=== PATIENT | female | born 1965 ===

== ENCOUNTER 2022-07-28 10:35 | Outpatient (CLI) | payer OTHER | END 2022-07-28 10:54 | disposition home or self-care (01) | LOC: MAMO-SONO 10:35 | DX: Z12.31 Encounter for screening mammogram for malignant neoplasm of breast (principal); N60.11 Diffuse cystic mastopathy of right breast; N60.12 Diffuse cystic mastopathy of left breast ==

== ENCOUNTER 2023-09-22 09:50 | Outpatient (CLI) | payer OTHER | END 2023-09-22 10:00 | disposition home or self-care (01) | LOC: MAMO-SONO 09:50 | PROVIDERS: ATTEND Obstetrics & Gynecology | DX: N60.11 Diffuse cystic mastopathy of right breast (principal); N60.12 Diffuse cystic mastopathy of left breast; Z12.31 Encounter for screening mammogram for malignant neoplasm of breast ==

== ENCOUNTER 2023-09-22 10:40 | Outpatient (CLI) | payer OTHER | END 2023-09-22 10:41 | disposition home or self-care (01) | LOC: NUCLEAR 10:40 | DX: M81.0 Age-related osteoporosis without current pathological fracture (principal) ==